=== PATIENT | male | born 1955 | race African-American/Black ===

== ENCOUNTER 2017-05-10 02:53 | Emergency (ER) | payer OTHER ==
[2017-05-10] MEDS ORDERED: Ibuprofen 800 MG TAB ONE (03:22)
[2017-05-10] MEDS ORDERED: HYDROcodone/Acetaminophen 5/325 mg Tablet ONE (03:59)
[2017-05-10] MEDS ORDERED: Lidocaine 1% 20 ML MDV ONE (04:23)
--- NOTE | 2017-05-10 08:22 | RAD ---
FOUR VIEWS RIGHT KNEE: INDICATIONS: Fall with pain. FINDINGS: There is no fracture or dislocation. No significant joint capsular distention. Enthesophyte format ion at the patella is present. Minute osteophytosis. IMPRESSION: No acute osseous abnormality of the right knee. POS: [facility]
--- NOTE | 2017-05-10 08:26 | RAD ---
FRONTAL RADIOGRAPH PELVIS: 05/10/2017 HISTORY: Fall. Trauma. Pain. COMPARISON: None. FINDINGS: There is degenerative superior osteophyte formation at the pubic symphysis. No widening of the sacr oiliac joints or pubic symphysis noted. Femoral heads project normally over their respective acetab ulum. No displaced fracture is seen. IMPRESSION: No acute osseous abnormality. POS: [facility]
--- NOTE | 2017-05-10 08:27 | RAD ---
RIGHT HIP TWO VIEWS: INDICATIONS: Pain. FINDINGS: There is no fracture or dislocation of the right hip. There is mild degenerative change. Degenerat tavia changes of the symphysis pubis. IMPRESSION: No acute fracture or dislocation of the right hip. POS: [facility]
--- NOTE | 2017-05-10 08:28 | RAD ---
LEFT ELBOW FOUR VIEWS: 05/10/2017 HISTORY: Fall. Trauma. Pain. COMPARISON: None. FINDINGS: Lateral imaging is limited secondary to partial extension of the elbow joint and rotation. No obvio us elbow joint effusion, fracture, or evidence of dislocation. IMPRESSION: No acute osseous abnormality. POS: [facility]
== END 2017-05-10 04:15 | disposition home or self-care (01) ==
LOC: NAV ERS 02:53
DX: S83.91XA Sprain of unspecified site of right knee, initial encounter (principal); S50.02XA Contusion of left elbow, initial encounter; M25.551 Pain in right hip; E78.5 Hyperlipidemia, unspecified; I10 Essential (primary) hypertension; Z79.899 Other long term (current) drug therapy; Y92.142 Bathroom in prison as the place of occurrence of the external cause; W17.89XA Other fall from one level to another, initial encounter; Y99.0 Civilian activity done for income or pay
CPT/HCPCS: 72170; J2001

== ENCOUNTER 2023-03-08 02:36 | Emergency (ER) | payer BC ==
[2023-03-08] MEDS ORDERED: Sodium Chloride 0.9% 1,000 ML ONE (03:05)
[2023-03-08] MEDS ORDERED: Mag-Al Plus 1200 MG/1200 MG/120 MG/30 ML UDCUP ONE (03:05)
[2023-03-08 03:31] LABS: Bilirubin Negative (Negative); Blood, Urine Trace (Negative); Clarity Clear (Clear); Glucose, Urine (Dipstick) Negative (Negative); Ketone, Urine Negative (Negative); Leukocyte Negative (Negative); Nitrite Negative (Negative); Protein, Urine (Dipstick) 30 mg/dL (Neg-Trace); Urobilinogen 0.2 mg/dL (Less than 2); pH, Urine 5.5 (5.0-9.0)
[2023-03-08 03:32] LABS: #Basophils 0.1 thou/uL (0.0-0.2); #Eosinphils 0.1 thou/uL (0.0-0.7); #Monocytes 0.6 thou/uL (0.11-0.59); #Neutrophils 3.1 thou/uL (1.40-6.50); %Eosinophils 1.3 % (0.0-10.0); %Monocytes 10.6 % (0.0-10.0); %Neutrophils 53.1 % (42.0-75.0); Hemoglobin 13.5 g/dL (14.0-18.0); Mean Corpuscular HGB CONC 31.8 g/dL (32.0-36.0); Mean Corpuscular Hemoglobin 28.5 pg (27.0-31.0); Mean Corpuscular Volume 89.8 fl (78.0-98.0); Mean Platelet Volume 10.5 fL (7.4-10.4); Platelet Count 206 10x3/uL (130-400); RBC Distribution Width 13.2 % (11.5-14.5); Red Blood Cell (RBC) Count 4.73 mill/uL (4.70-6.10); White Blood Cell (WBC) Count 5.9 10x3/uL (4.8-10.8)
[2023-03-08 03:32] LABS: Specific Gravity, Urine 1.025 (1.002-1.036)
[2023-03-08 03:33] LABS: RBC/HPF 0-3 HPF (0-3)
[2023-03-08 03:34] LABS: Bacteria/HPF None Seen HPF (None Seen); CAUTI Indications for Culture Dysuria,urgency,freq; Squamous Epithelial None Seen HPF (0-3); Urine Culture Reflex No No; WBC/HPF None Seen HPF (0-3)
[2023-03-08 03:47] LABS: ALT (SGPT) 22 U/L (8-55); AST (SGOT) 19 U/L (5-34); Albumin 4.7 g/dL (3.4-4.8); Alkaline Phosphatase 84 U/L (40-110); Anion Gap 13 mmol/L (10-20); BUN (Urea Nitrogen) 11 mg/dL (8.4-25.7); Bilirubin, Total 0.4 mg/dL (0.2-1.2); Calc. Creatinine Clearance 0 mL/min (70-130); Calcium 9.6 mg/dL (7.8-10.44); Carbon Dioxide 25 mmol/L (23-31); Chloride 105 mmol/L (98-107); Estimated GFR 85; Globulin 3.6 g/dL (2.4-3.5); Glucose 138 mg/dL (80-115); Lipase 14 U/L (8-78); Potassium 3.6 mmol/L (3.5-5.1); Protein, Total 8.3 g/dL (5.8-8.1); Sodium 139 mmol/L (136-145)
[2023-03-08 14:38] LABS: Campy jejuni + coli by PCR Negative (Negative); STEC Shiga Toxin 1+2 Negative (Negative); Salmonella spp. by PCR Negative (Negative); Shigella spp + EIEC by PCR Negative (Negative)
== END 2023-03-08 04:15 | disposition home or self-care (01) ==
LOC: NAV ERS 02:36
DX: R19.7 Diarrhea, unspecified (principal); E86.0 Dehydration; E78.00 Pure hypercholesterolemia, unspecified; I10 Essential (primary) hypertension
CPT/HCPCS: 80053; 81001; 82274; 83690; 85025; 87505; 99284; J7050